=== PATIENT | female | born 1965 | race Caucasian/White ===

== ENCOUNTER 2017-10-05 09:02 | Day surgery (SDC) | payer OTHER ==
[2017-10-05] MEDS ORDERED: LIDOCAINE 1%/EPI 30 ML INJ (11:03)
[2017-10-05] MEDS ORDERED: BACITRACIN/POLYMYXIN 28.35 GM OINT TOP (11:05)
[2017-10-05] MEDS ORDERED: COCAINE 4% 4 ML TOP (11:06)
[2017-10-05] MEDS ORDERED: PROPOFOL 20 ML (11:11)
[2017-10-05] MEDS ORDERED: FENTAnyl 50 MCG/ML VIAL (11:11)
[2017-10-05] MEDS ORDERED: ROCURONIUM 50 MG INJ (11:11)
[2017-10-05] MEDS ORDERED: MIDAZOLAM 1 MG/ML 2 ML INJ (11:11)
[2017-10-05] MEDS ORDERED: LIDOCAINE 1% (MDV) 20 ML INJ (11:11)
[2017-10-05] MEDS ORDERED: DEXAMETHASONE 4 MG/ML 1 ML INJ (11:27)
[2017-10-05] MEDS ORDERED: CEFAZOLIN 1 GM INJ (11:27)
[2017-10-05] MEDS ORDERED: ONDANSETRON 4 MG INJ (11:27)
[2017-10-05] MEDS: LIDOCAINE 1%/EPI 30 ML INJ INJ (11:36)
[2017-10-05] MEDS: COCAINE 4% 4 ML TOP (11:37)
[2017-10-05] MEDS: BACITRACIN/POLYMYXIN 0.9 GM OINT TOP (12:07)
[2017-10-05] MEDS ORDERED: SUGAMMADEX SODIUM 200 MG/2 ML VIAL IV (12:11)
== END 2017-10-05 15:15 | disposition home or self-care (01) ==
LOC: SDS 09:02
DX: J34.2 Deviated nasal septum (principal); J34.3 Hypertrophy of nasal turbinates; J33.9 Nasal polyp, unspecified; J34.89 Other specified disorders of nose and nasal sinuses
CPT/HCPCS: 30140; 88304; 93005